=== PATIENT | female | born 1995 | race Caucasian/White ===

== ENCOUNTER 2021-02-18 19:06 | Day surgery (SDCO) | payer OTHER ==
[~2021-02-18] VITALS: Ht 160 cm; Wt 49.2 kg
[2021-02-18 19:59] LABS: BASOPHIL 0.5 % (0-2); EOSINOPHIL 0.1 % (0-5); HGB 16.4 g/dl (12.5-16.0); LYMPHOCYTE 2.5 % (15-48); MCH 31.1 pg (25.0-31.0); MCHC 34.2 g/dL (32.0-36.0); MCV 90.9 fL (78.0-100.0); MONOCYTE 6.4 % (0-12); MPV 9.9 fL (6.0-9.5); NEUTROPHIL 89.9 % (41-80); NRBC 0; PLT 311 K/uL (150-400); RBC 5.28 M/uL (4.20-5.40); RDW 12.9 % (11.5-14.0); WBC 26.3 K/uL (4.0-10.5)
[2021-02-18 20:12] LABS: BILIRUBIN 1+ mg/dL (NEGATIVE); BLOOD NEGATIVE Ery/uL (NEGATIVE); CLARITY CLEAR (CLEAR); COLOR YELLOW (YELLOW); GLUCOSE (U) NORMAL (NORMAL); LEUKOCYTES NEGATIVE Leu/uL (NEGATIVE); NITRITE NEGATIVE (NEGATIVE); PROTEIN 2+ mg/dL (NEGATIVE); SPECIFIC GRAVITY >=1.030 (1.001-1.030); UROBILINOGEN 0.2 mg/dL (0.2-1.0); pH 5.5 (5.0-9.0)
[2021-02-18 20:15] LABS: BACTERIA 1+; URINARY RBC RARE
[2021-02-18 20:16] LABS: MUCOUS TRACE
[2021-02-18 20:22] LABS: ALBUMIN 4.6 g/dL (3.4-5.0); BILIRUBIN - TOTAL 0.8 mg/dL (0.2-1.0); BUN/CREAT RATIO (CALC) 19.2 RATIO; CREATININE 0.73 mg/dL (0.51-0.95); GLOBULIN (CALCULATION) 3.6 g/dL; POTASSIUM 4.2 mmol/L (3.5-5.1); TOTAL PROTEIN 8.2 g/dL (6.4-8.2)
[2021-02-18 21:59] LABS: CORONAVIRUS 2019 SARS-COV-2 NEGATIVE (NEGATIVE); INFLUENZA A NAA NEGATIVE (NEGATIVE)
[2021-02-19 05:41] LABS: BASOPHIL 0.3 % (0-2); EOSINOPHIL 0 % (0-5); HCT 40.8 % (37.0-47.0); HGB 13.9 g/dl (12.5-16.0); MCHC 34.1 g/dL (32.0-36.0); MCV 91.1 fL (78.0-100.0); MONOCYTE 4.7 % (0-12); MPV 10.3 fL (6.0-9.5); NEUTROPHIL 92.6 % (41-80); NRBC 0; PLT 235 K/uL (150-400); RBC 4.48 M/uL (4.20-5.40); RDW 12.9 % (11.5-14.0); WBC 16.1 K/uL (4.0-10.5)
[2021-02-19 06:36] LABS: ALBUMIN 3.1 g/dL (3.4-5.0); CREATININE 0.7 mg/dL (0.51-0.95); GLOBULIN (CALCULATION) 2.7 g/dL; POTASSIUM 4.4 mmol/L (3.5-5.1); TOTAL PROTEIN 5.8 g/dL (6.4-8.2)
[2021-02-19] MEDS ORDERED: METRONIDAZOLE500 MG PO (09:48)
[2021-02-19] MEDS ORDERED: ONDANSETRON ODT4 MG PO (09:48)
[2021-02-19] MEDS ORDERED: IMODIUM2 MG PO (09:48)
--- NOTE | 2021-02-19 11:37 | NUR ---
I have reviewed the assessment documented by the Student Nurse and agree with the findings.
== END 2021-02-19 10:59 | disposition home or self-care (01) ==
LOC: FER 19:06 → FMS 21:55
PROVIDERS: Nurse Practitioner; Nurse Practitioner Family; ADMIT Allergy & Immunology Allergy
DX: A09 Infectious gastroenteritis and colitis, unspecified (principal); E86.0 Dehydration; F17.290 Nicotine dependence, other tobacco product, uncomplicated; M41.9 Scoliosis, unspecified; Z20.822 Contact with and (suspected) exposure to COVID-19
CPT/HCPCS: 36415; 80053; 81001; 83605; 83690; 85025; 87040; 87045; 87046; 87339; G0378; J0780; J2405; J7030; J7120; Q9967; U0002